=== PATIENT | female | born 1985 | race Two or more races ===

== ENCOUNTER 2024-01-11 14:27 | Emergency (ER) | payer OTHER ==
[~2024-01-11] VITALS: Ht 160 cm; Wt 92.0 kg
[2024-01-11 16:45] VITALS: BP 140/84; PULSE 88; RESP 18; TEMP 98.8; O2SAT 97
== END 2024-01-11 16:46 | disposition home or self-care (01) ==
LOC: ER 14:27
DX: S09.90XA Unspecified injury of head, initial encounter (principal); W18.39XA Other fall on same level, initial encounter; Y93.89 Activity, other specified; Y92.89 Other specified places as the place of occurrence of the external cause; Y99.8 Other external cause status
CPT/HCPCS: 70450